=== PATIENT | female | born 1965 | race Caucasian/White ===

== ENCOUNTER 2017-02-03 17:14 | Emergency (ER) | payer OTHER ==
[2017-02-03 17:28] VITALS: RESP 16; TEMP 99
[2017-02-03] MEDS ORDERED: SODIUM CHLORIDE 0.9% 1,000 ML IV STA (18:01)
[2017-02-03] MEDS ORDERED: ONDANSETRON 4 MG/2 ML VIAL IVP STA (18:01)
--- NOTE | 2017-02-03 18:11 | ED ---
General Adult HPI - General Chief complaint: Urogenital Stated complaint: Poss UTI, nauseated Time Seen by Provider: 02/03/17 17:50 Source: patient, RN notes reviewed Mode of arrival: wheelchair Limitations: no limitations - History of Present Illness Initial comments: 51-year-old female presents emergency Department with multiple complaints including abdominal pain, nausea vomiting diarrhea. Patient states that she has not felt well over the last 6 weeks she initially started with some hematuria possible UTI was placed on mostly her back for several weeks prior primary care physician. She continued to not feel well and states that they didn't ultrasound of her pelvic region she had right-sided abdominal pain and found that she had a left-sided ovarian cyst. At this point she was referred to her DIRECTOR OF OCCUPATIONAL THERAPY in which DIRECTOR OF OCCUPATIONAL THERAPY told her that her pain is not related to the cyst is on same side. Patient states that she continues have multiple episodes of diarrhea and states that she feels very rundown and weak. Patient states that she's had some nausea which is ongoing and vomiting. Patient denies any fever currently but states that she did have a few days that she no she had a fever. Patient denies chest pain or shortness of breath. Patient denies any dysuria or hematuria at this time. Patient states that she has a history kidney stone and had one removed last year. She called her urologist to follow up but she was given the appointment 2 months from now. Patient denies any melena, hematochezia, hematemesis or coffee-ground emesis. - Related Data Home Medications Medication Instructions Recorded Confirmed DULoxetine HCL [Cymbalta] 90 mg PO HS 02/03/17 02/03/17 [place] Carbonate 900 mg PO HS 02/03/17 02/03/17 Pregabalin [Lyrica] 150 mg PO HS 02/03/17 02/03/17 clonazePAM [KlonoPIN] 0.5 mg PO TID PRN 02/03/17 02/03/17 Previous Rx's Medication Instructions Recorded Acetaminophen-Codeine 300-30mg 1 tab PO Q4H PRN #20 tablet 02/03/17 [Tylenol #3] Ondansetron Odt [Zofran Odt] 4 mg PO Q8HR PRN #10 tab 02/03/17 Allergies Allergy/AdvReac Type Severity Reaction Status Date / Time oxytetracycline Allergy Rash/Hives Verified 02/03/17 18:10 [From Terramycin] Review of Systems ROS Statement: Those systems with pertinent positive or pertinent negative responses have been documented in the HPI. ROS Other: All systems not noted in ROS Statement are negative. Past Medical History Past Medical History: No Reported History History of Any Multi-Drug Resistant Organisms: None Reported Past Surgical History: Orthopedic Surgery Additional Past Surgical History / Comment(s): bilateral knee surgery, cervical albation Past Psychological History: Anxiety, Depression Smoking Status: Current every day smoker Past Alcohol Use History: None Reported Past Drug Use History: None Reported General Exam Limitations: no limitations General appearance: alert, in no apparent distress Head exam: Present: atraumatic, normocephalic, normal inspection Respiratory exam: Present: normal lung sounds bilaterally. Absent: respiratory distress, wheezes, rales, rhonchi, stridor Cardiovascular Exam: Present: regular rate, normal rhythm, normal heart sounds. Absent: systolic murmur, diastolic murmur, rubs, gallop, clicks GI/Abdominal exam: Present: soft, tenderness (Mild right-sided abdominal tenderness, epigastric tenderness moderate), normal bowel sounds. Absent: distended, guarding, rebound, rigid Back exam: Present: CVA tenderness (R). Absent: CVA tenderness (L) Neurological exam: Present: alert, oriented X3, CN II-XII intact Skin exam: Present: warm, dry, intact, normal color. Absent: rash Course Vital Signs 02/03/17 02/03/17 17:21 19:22 Temperature 99.0 F Pulse Rate 84 77 Respiratory 16 16 Rate Blood Pressure 133/81 129/67 O2 Sat by Pulse 99 96 Oximetry Medical Decision Making - Medical Decision Making 51-year-old female presented for diarrhea abdominal pain nausea vomiting. Patient's lab work essentially unremarkable. There is no evidence of urinary tract infection. Patient unable to provide a stool sample here. She'll be sent home with a prescription for stool studies. Patient may have some sort of colitis, C. diff infection. Patient does feel improved after IV fluids and antinausea medication pain medication. Patient will follow on-call Dr. Sanchez she'll be discharged with pain medication Zofran. Return parameters were discussed. - Lab Data Result diagrams: 02/03/17 18:15 02/03/17 18:15 Lab Results 02/03/17 02/03/17 02/03/17 Range/Units 18:15 18:15 18:20 WBC 11.0 H (3.8-10.6) k/uL RBC 4.87 (3.80-5.40) m/uL Hgb 15.2 (11.4-16.0) gm/dL Hct 46.9 H (34.0-46.0) % MCV 96.3 (80.0-100.0) fL MCH 31.2 (25.0-35.0) pg MCHC 32.4 (31.0-37.0) g/dL RDW 13.3 (11.5-15.5) % Plt Count 309 (150-450) k/uL Neutrophils % 67 % Lymphocytes % 26 % Monocytes % 4 % Eosinophils % 1 % Basophils % 1 % Neutrophils # 7.3 (1.3-7.7) k/uL Lymphocytes # 2.8 (1.0-4.8) k/uL Monocytes # 0.4 (0-1.0) k/uL Eosinophils # 0.1 (0-0.7) k/uL Basophils # 0.1 (0-0.2) k/uL Sodium 141 (137-145) mmol/L Potassium 3.7 (3.5-5.1) mmol/L Chloride 109 H (98-107) mmol/L Carbon Dioxide 23 (22-30) mmol/L Anion Gap 9 mmol/L BUN 13 (7-17) mg/dL Creatinine 0.70 (0.52-1.04) mg/dL Est GFR (MDRD) Af Amer >60 (>60 ml/min/1.73 sqM) Est GFR (MDRD) Non-Af >60 (>60 ml/min/1.73 sqM) Glucose 91 (74-99) mg/dL Calcium 9.7 (8.4-10.2) mg/dL Total Bilirubin 0.7 (0.2-1.3) mg/dL AST 20 (14-36) U/L ALT 30 (9-52) U/L Alkaline Phosphatase 92 (38-126) U/L Total Protein 7.3 (6.3-8.2) g/dL Albumin 4.6 (3.5-5.0) g/dL Amylase 60 (30-110) U/L Lipase 61 (23-300) U/L Urine Color Yellow Urine Appearance Cloudy H (Clear) Urine pH 5.5 (5.0-8.0) Ur Specific [place] 1.018 (1.001-1.035) Urine Protein Negative (Negative) Urine Glucose (UA) Negative (Negative) Urine Ketones Negative (Negative) Urine Blood Negative (Negative) Urine Nitrite Negative (Negative) Urine Bilirubin Negative (Negative) Urine Urobilinogen <2.0 (<2.0) mg/dL Ur Leukocyte Esterase Negative (Negative) Urine RBC 2 (0-5) /hpf Urine WBC 5 (0-5) /hpf Ur Squamous Epith Cells 19 H (0-4) /hpf Amorphous Sediment Rare H (None) /hpf Urine Bacteria Rare H (None) /hpf Urine Mucus Rare H (None) /hpf Disposition Clinical Impression: Diarrhea, Abdominal pain Disposition: HOME SELF-CARE Condition: Stable Instructions: Abdominal Pain (ED) Additional Instructions: Please return to the Emergency Department if symptoms worsen or any other concerns. Prescriptions: Acetaminophen-Codeine 300-30mg [Tylenol #3] 1 tab PO Q4H PRN #20 tablet PRN Reason: pain Ondansetron Odt [Zofran Odt] 4 mg PO Q8HR PRN #10 tab PRN Reason: Nausea Referrals: Moses Dai MD [Primary Care Provider] - 1-2 days Time of Disposition: 20:10
[2017-02-03 18:31] LABS: Basophils # (A) 0.1 k/uL (0-0.2); Basophils % (A) 1 %; CH 31.4; CHCM 32.8; Eosinophils # (A) 0.1 k/uL (0-0.7); Eosinophils % (A) 1 %; HCT 46.9 % (34.0-46.0); HDW 2.14; HGB 15.2 gm/dL (11.4-16.0); Luc # (Auto) 0.21; Luc % (Auto) 2; Lymphocytes # (A) 2.8 k/uL (1.0-4.8); Lymphocytes % (A) 26 %; MCH 31.2 pg (25.0-35.0); MCHC 32.4 g/dL (31.0-37.0); MCV 96.3 fL (80.0-100.0); Mean Platelet Volume 6.1; Monocytes # (A) 0.4 k/uL (0-1.0); Monocytes % (A) 4 %; Neutrophils # (A) 7.3 k/uL (1.3-7.7); Neutrophils % (A) 67 %; RBC 4.87 m/uL (3.80-5.40); RDW 13.3 % (11.5-15.5); WBC (Perox) 10.67
[2017-02-03 18:44] LABS: Amorphous Sediment,Urine Rare /hpf; Appearance,Urine Cloudy (Clear); Bacteria,Urine Rare /hpf; Bilirubin,Urine Negative (Negative); Glucose,Urine (UA) Negative (Negative); Ketones,Urine Negative (Negative); Leukocyte Esterase,Urine Negative (Negative); Mucus,Urine Rare /hpf; Nitrite,Urine Negative (Negative); PH, Urine 5.5 (5.0-8.0); Particle Count 4861; Protein,Urine Negative (Negative); RBC,Urine 2 /hpf (0-5); Specific Gravity,Urine 1.018 (1.001-1.035); Squamous Epithelial Cell,Urine 19 /hpf (0-4); UA Billing (MACRO vs. MICRO) MICRO; Urobilinogen,Urine <2.0 mg/dL (<2.0); WBC,Urine 5 /hpf (0-5)
[2017-02-03 18:52] LABS: ALT 30 U/L (9-52); AST 20 U/L (14-36); Alkaline Phosphatase 92 U/L (38-126); Amylase 60 U/L (30-110); Anion Gap 9 mmol/L; Blood Urea Nitrogen 13 mg/dL (7-17); Calcium 9.7 mg/dL (8.4-10.2); Carbon Dioxide 23 mmol/L (22-30); Chloride 109 mmol/L (98-107); Glucose 91 mg/dL (74-99); Non-African American GFR(MDRD) >60 (>60 ml/min/1.73 sqM); Potassium 3.7 mmol/L (3.5-5.1); Sodium 141 mmol/L (137-145); Total Bilirubin 0.7 mg/dL (0.2-1.3); Total Protein 7.3 g/dL (6.3-8.2)
[2017-02-03] MEDS ORDERED: RX INFO: IV CONTRAST WAS GIVEN 1 EACH MISC MISCELLANE PRN (18:55)
[2017-02-03] MEDS ORDERED: MORPHINE SULFATE 4 MG/ML SYRINGE IVP STA (18:57)
[2017-02-03] MEDS ORDERED: SODIUM CHLORIDE 0.9% 1,000 ML IV ONE (18:58)
--- NOTE | 2017-02-03 19:05 | XR ---
EXAMINATION TYPE: XR KUB DATE OF EXAM: 02/03/2017 6:42 PM COMPARISON: NONE HISTORY: Abdominal pain TECHNIQUE: 2 views FINDINGS: There is no sign of intestinal obstruction or pneumoperitoneum. Fecal pattern is normal. Th ere are no pathologic calcifications over the kidneys. IMPRESSION: Nonacute abdomen.
--- NOTE | 2017-02-03 19:54 | CT ---
EXAMINATION TYPE: CT abdomen pelvis w con DATE OF EXAM: 02/03/2017 7:47 PM COMPARISON: NONE HISTORY: Right flank pain with microscopic hematuria x [address] DLP: 1590.00 mGycm Automated exposure control for dose reduction was used. TECHNIQUE: Helical acquisition of images was performed from the lung bases through the pelvis. CONTRAST: Performed without Oral Contrast and with IV Contrast, patient injected with 100 mL of Omnipaque 300. FINDINGS: There is mild subsegmental atelectasis at the posterior lung bases. There is no pleural effusion. The liver spleen pancreas gallbladder appear normal. Bile ducts are not dilated. There is no adrenal mass. Kidneys show satisfactory contrast opacification. There is no hydronephrosis. Ureters are not d ilated. There is no retroperitoneal adenopathy. There is a small umbilical hernia that contains fat. Appendix appears normal. I see no intestinal wall thickening. There are no dilated loops. Bladder dis tends smoothly. There is no sign of a pelvic mass. There are multiple sigmoid diverticula. There is n o evidence of diverticulitis. Uterus is retroverted. There is no ascites. I see no bony destructive p rocess. IMPRESSION: SMALL UMBILICAL HERNIA. NORMAL APPENDIX. NO SIGN OF ACUTE ABDOMEN AND PELVIS. MILD SIGMOID DIVERTICUL OSIS.
[2017-02-03 20:27] VITALS: BP 132/75; PULSE 70
== END 2017-02-03 20:27 | disposition home or self-care (01) ==
LOC: EC 17:14
DX: R10.13 Epigastric pain (principal); R11.2 Nausea with vomiting, unspecified; R19.7 Diarrhea, unspecified; F32.9 Major depressive disorder, single episode, unspecified; F41.9 Anxiety disorder, unspecified; F17.200 Nicotine dependence, unspecified, uncomplicated; Z79.899 Other long term (current) drug therapy; Z88.1 Allergy status to other antibiotic agents; Z87.442 Personal history of urinary calculi; Z87.42 Personal history of other diseases of the female genital tract
CPT/HCPCS: 36415; 80053; 82150; 83690; 85025; 81001; 74000; 74177; 99284; 96374; 96375; 96361 ×2; J2270; J2405; Q9967

== ENCOUNTER 2020-04-25 14:09 | Emergency (ER) | payer OTHER ==
[2020-04-25] MEDS ORDERED: KETOROLAC 15 MG/ML 1 ML VIAL IVP STA (14:58)
[2020-04-25] MEDS ORDERED: MORPHINE SULFATE 4 MG/ML SYRINGE IV STA (14:58)
[2020-04-25] MEDS ORDERED: SODIUM CHLORIDE 0.9% 1,000 ML IV STA ×2 (14:58)
[2020-04-25] MEDS ORDERED: ONDANSETRON 4 MG/2 ML VIAL IVP STA (14:58)
[2020-04-25 15:22] LABS: Appearance,Urine Clear (Clear); Bilirubin,Urine Negative (Negative); Blood,Urine Negative (Negative); Color,Urine Light Yellow; Glucose,Urine (UA) Negative (Negative); Ketones,Urine Negative (Negative); Leukocyte Esterase,Urine Negative (Negative); Nitrite,Urine Negative (Negative); Protein,Urine Negative (Negative); Specific Gravity,Urine 1.004 (1.001-1.035); Urobilinogen,Urine <2.0 mg/dL (<2.0)
[2020-04-25 15:23] LABS: Basophils # (A) 0.1 k/uL (0-0.2); Basophils % (A) 1 %; Eosinophils # (A) 0.1 k/uL (0-0.7); Eosinophils % (A) 2 %; HCT 42.1 % (34.0-46.0); HGB 13.3 gm/dL (11.4-16.0); Lymphocytes # (A) 3.3 k/uL (1.0-4.8); Lymphocytes % (A) 50 %; MCH 30.2 pg (25.0-35.0); MCHC 31.5 g/dL (31.0-37.0); Mean Platelet Volume 6.5; Monocytes # (A) 0.3 k/uL (0-1.0); Monocytes % (A) 4 %; Neutrophils # (A) 2.7 k/uL (1.3-7.7); Neutrophils % (A) 41 %; Platelet Count 286 k/uL (150-450); RBC 4.39 m/uL (3.80-5.40); RDW 13.3 % (11.5-15.5); WBC 6.6 k/uL (3.8-10.6)
[2020-04-25 15:32] LABS: ALT 17 U/L (4-34); AST 20 U/L (14-36); African American GFR (CKD) >90 (>60 ml/min/1.73 sqM); Albumin 4.2 g/dL (3.5-5.0); Alkaline Phosphatase 71 U/L (38-126); Amylase 46 U/L (30-110); Anion Gap 7 mmol/L; Blood Urea Nitrogen 8 mg/dL (7-17); Calcium 9.6 mg/dL (8.4-10.2); Carbon Dioxide 21 mmol/L (22-30); Chloride 111 mmol/L (98-107); Glucose 83 mg/dL (74-99); Non-African American GFR(CKD) >90 (>60 ml/min/1.73 sqM); Potassium 4.2 mmol/L (3.5-5.1); Sodium 139 mmol/L (137-145); Total Bilirubin 0.5 mg/dL (0.2-1.3); Total Protein 6.7 g/dL (6.3-8.2)
[2020-04-25 15:33] LABS: Partial Thromboplastin Time 24.1 sec (22.0-30.0); Prothrombin Time 10.2 sec (9.0-12.0)
--- NOTE | 2020-04-25 15:50 | ED ---
Abdominal Pain HPI - General Chief Complaint: Abdominal Pain Stated Complaint: nausea/vomiting Time Seen by Provider: 04/25/20 14:38 Source: patient, RN notes reviewed, old records reviewed Mode of arrival: wheelchair Limitations: no limitations - History of Present Illness Initial Comments: Ashley is a 34-year-old female presents with emergency department today with 5 days of right-sided abdominal pain. She reports it seems to worse after eating. She states that she has had significant nausea and has not ate in the past week. Patient reports some chillsassociated fevers but she has not had a thermometer at home to check. She states that she is not had much stool output. She denies any change in urination. - Related Data Home Medications Medication Instructions Recorded Confirmed DULoxetine HCL [Cymbalta] 30 mg PO HS 02/03/17 04/25/20 [place] Carbonate 900 mg PO HS 02/03/17 04/25/20 DULoxetine HCL [Cymbalta] 60 mg PO HS 04/25/20 04/25/20 Dicyclomine [Bentyl] 10 mg PO DAILY PRN 04/25/20 04/25/20 Multivitamins, Thera [Multivitamin 1 tab PO HS 04/25/20 04/25/20 (formulary)] Omeprazole 20 mg PO DAILY 04/25/20 04/25/20 QUEtiapine XR [SEROquel XR] 150 mg PO HS 04/25/20 04/25/20 clonazePAM [KlonoPIN] 0.5 mg PO QID PRN 04/25/20 04/25/20 Previous Rx's Medication Instructions Recorded Ciprofloxacin HCl [Cipro] 500 mg PO BID 7 Days #14 tab 04/25/20 Ondansetron Odt [Zofran Odt] 4 mg PO Q8HR PRN #12 tab 04/25/20 metroNIDAZOLE [Flagyl] 500 mg PO TID #21 tab 04/25/20 Allergies Allergy/AdvReac Type Severity Reaction Status Date / Time oxytetracycline Allergy Rash/Hives Verified 04/25/20 15:36 [From Terramycin] Review of Systems ROS Statement: Those systems with pertinent positive or pertinent negative responses have been documented in the HPI. ROS Other: All systems not noted in ROS Statement are negative. Past Medical History Past Medical History: No Reported History History of Any Multi-Drug Resistant Organisms: None Reported Past Surgical History: Orthopedic Surgery Additional Past Surgical History / Comment(s): bilateral knee surgery, cervical albation Past Psychological History: Anxiety, Depression Past Alcohol Use History: None Reported Past Drug Use History: None Reported General Exam - General Exam Comments Initial Comments: This is a 54-year-old male. Alert and oriented. Limitations: no limitations General appearance: alert, in no apparent distress Head exam: Present: atraumatic, normocephalic, normal inspection Eye exam: Present: normal appearance, PERRL, EOMI. Absent: scleral icterus, conjunctival injection, periorbital swelling ENT exam: Present: normal exam, mucous membranes moist Neck exam: Present: normal inspection. Absent: tenderness, meningismus, lymphadenopathy Respiratory exam: Present: normal lung sounds bilaterally. Absent: respiratory distress, wheezes, rales, rhonchi, stridor Cardiovascular Exam: Present: regular rate, normal rhythm, normal heart sounds. Absent: systolic murmur, diastolic murmur, rubs, gallop, clicks GI/Abdominal exam: Present: soft, tenderness (Is guarding tenderness on the rig ht upper and lower quadrant.), normal bowel sounds. Absent: distended, guarding, rebound, rigid Extremities exam: Present: normal inspection, full ROM, normal capillary refill. Absent: tenderness, pedal edema, joint swelling, calf tenderness Back exam: Present: normal inspection Neurological exam: Present: alert, oriented X3, CN II-XII intact Psychiatric exam: Present: normal affect, normal mood Course Vital Signs 04/25/20 04/25/20 04/25/20 14:18 15:33 18:30 Temperature 98.4 F 98.5 F Pulse Rate 84 77 71 Respiratory 16 17 18 Rate Blood Pressure 114/76 148/87 110/73 O2 Sat by Pulse 96 96 96 Oximetry Medical Decision Making - Medical Decision Making 54 year old female presents with right abdominal pain and nausea for one week. She reported peritoneal signs worse with going over bumps while driving to ED. She has tenderness in RLQ and Right mid quadraint and state pain radiates towards umbilicus. Discussed concern for appendicitis vs cholelithiasis,and patient has Hx of diverticulitis. Labs were reviewed and unremarkable. Due to persistent pain, pt underwent CT scan with contrast, showing diverticulosis and lumbar spine changes. No signs or cholecystitis. She has normal transaminase. With HX of diverticulosis and persistent tendereness discussed treatment for possible early diverticulitis and that pt needs to follow up with PCP as symptoms could also be related to biliary colic and possible hida scan in in the future. Discussed strict return parameters. - Lab Data Result diagrams: 04/25/20 15:08 04/25/20 15:08 Lab Results 04/25/20 04/25/20 04/25/20 Range/Units 15:08 15:08 15:08 WBC 6.6 (3.8-10.6) k/uL RBC 4.39 (3.80-5.40) m/uL Hgb 13.3 (11.4-16.0) gm/dL Hct 42.1 (34.0-46.0) % MCV 96.0 (80.0-100.0) fL MCH 30.2 (25.0-35.0) pg MCHC 31.5 (31.0-37.0) g/dL RDW 13.3 (11.5-15.5) % Plt Count 286 (150-450) k/uL Neutrophils % 41 % Lymphocytes % 50 % Monocytes % 4 % Eosinophils % 2 % Basophils % 1 % Neutrophils # 2.7 (1.3-7.7) k/uL Lymphocytes # 3.3 (1.0-4.8) k/uL Monocytes # 0.3 (0-1.0) k/uL Eosinophils # 0.1 (0-0.7) k/uL Basophils # 0.1 (0-0.2) k/uL PT 10.2 (9.0-12.0) sec INR 1.0 (<1.2) APTT 24.1 (22.0-30.0) sec Sodium (137-145) mmol/L Potassium (3.5-5.1) mmol/L Chloride (98-107) mmol/L Carbon Dioxide (22-30) mmol/L Anion Gap mmol/L BUN (7-17) mg/dL Creatinine (0.52-1.04) mg/dL Est GFR (CKD-EPI)AfAm (>60 ml/min/1.73 sqM) Est GFR (CKD-EPI)NonAf (>60 ml/min/1.73 sqM) Glucose (74-99) mg/dL Plasma Lactic Acid Tomas (0.7-2.0) mmol/L Calcium (8.4-10.2) mg/dL Total Bilirubin (0.2-1.3) mg/dL AST (14-36) U/L ALT (4-34) U/L Alkaline Phosphatase (38-126) U/L Total Protein (6.3-8.2) g/dL Albumin (3.5-5.0) g/dL Amylase (30-110) U/L Lipase (23-300) U/L Urine Color Light Yellow Urine Appearance Clear (Clear) Urine pH 7.0 (5.0-8.0) Ur Specific [place] 1.004 (1.001-1.035) Urine Protein Negative (Negative) Urine Glucose (UA) Negative (Negative) Urine Ketones Negative (Negative) Urine Blood Negative (Negative) Urine Nitrite Negative (Negative) Urine Bilirubin Negative (Negative) Urine Urobilinogen <2.0 (<2.0) mg/dL Ur Leukocyte Esterase Negative (Negative) 04/25/20 04/25/20 Range/Units 15:08 15:08 WBC (3.8-10.6) k/uL RBC (3.80-5.40) m/uL Hgb (11.4-16.0) gm/dL Hct (34.0-46.0) % MCV (80.0-100.0) fL MCH (25.0-35.0) pg MCHC (31.0-37.0) g/dL RDW (11.5-15.5) % Plt Count (150-450) k/uL Neutrophils % % Lymphocytes % % Monocytes % % Eosinophils % % Basophils % % Neutrophils # (1.3-7.7) k/uL Lymphocytes # (1.0-4.8) k/uL Monocytes # (0-1.0) k/uL Eosinophils # (0-0.7) k/uL Basophils # (0-0.2) k/uL PT (9.0-12.0) sec INR (<1.2) APTT (22.0-30.0) sec Sodium 139 (137-145) mmol/L Potassium 4.2 (3.5-5.1) mmol/L Chloride 111 H (98-107) mmol/L Carbon Dioxide 21 L (22-30) mmol/L Anion Gap 7 mmol/L BUN 8 (7-17) mg/dL Creatinine 0.71 (0.52-1.04) mg/dL Est GFR (CKD-EPI)AfAm >90 (>60 ml/min/1.73 sqM) Est GFR (CKD-EPI)NonAf >90 (>60 ml/min/1.73 sqM) Glucose 83 (74-99) mg/dL Plasma Lactic Acid Tomas 1.0 (0.7-2.0) mmol/L Calcium 9.6 (8.4-10.2) mg/dL Total Bilirubin 0.5 (0.2-1.3) mg/dL AST 20 (14-36) U/L ALT 17 (4-34) U/L Alkaline Phosphatase 71 (38-126) U/L Total Protein 6.7 (6.3-8.2) g/dL Albumin 4.2 (3.5-5.0) g/dL Amylase 46 (30-110) U/L Lipase 35 (23-300) U/L Urine Color Urine Appearance (Clear) Urine pH (5.0-8.0) Ur Specific [place] (1.001-1.035) Urine Protein (Negative) Urine Glucose (UA) (Negative) Urine Ketones (Negative) Urine Blood (Negative) Urine Nitrite (Negative) Urine Bilirubin (Negative) Urine Urobilinogen (<2.0) mg/dL Ur Leukocyte Esterase (Negative) - Radiology Data Radiology results: report reviewed CT shows diverticulosis. Findings and lumbar spine with loss of disc height and vacuum phenomenon present on L5. There is right-sided foraminal encroachment at L5-S1 due to lateral extension of endplate disc complex. Disposition Clinical Impression: Diverticulitis, Nausea Disposition: HOME SELF-CARE Condition: Good Instructions (If sedation given, give patient instructions): Diverticulitis (ED), Acute Nausea and Vomiting (ED) Additional Instructions: Recommended close follow-up with primary care physician if symptoms continue to persist to have a HIDA scan. Have a bland diet. Take medication as prescribed. Return to ED if any alarming signs or symptoms occur. Prescriptions: Ciprofloxacin HCl [Cipro] 500 mg PO BID 7 Days #14 tab metroNIDAZOLE [Flagyl] 500 mg PO TID #21 tab Ondansetron Odt [Zofran Odt] 4 mg PO Q8HR PRN #12 tab PRN Reason: Nausea Is patient prescribed a controlled substance at d/c from ED?: No Referrals: Adelina Queen DO [Primary Care Provider] - 1-2 days Time of Disposition: 17:31
--- NOTE | 2020-04-25 16:51 | CT ---
EXAMINATION TYPE: CT abdomen pelvis w con DATE OF EXAM: 04/25/2020 COMPARISON: Prior CT 02/03/2017 HISTORY: Right sided pain with nausea. CT DLP: 1406.9 mGycm Automated exposure control for dose reduction was used. TECHNIQUE: Helical acquisition of images from the lung bases through the pelvis have been completed. CONTRAST: Performed without Oral Contrast and with IV Contrast, patient injected with 100 mL of Isovue 300. FINDINGS: Umbilical hernia contains fat. LUNG BASES: There is some dependent atelectatic changes present. AORTA: No significant abnormality is appreciated. LIVER/GB: No significant abnormality is appreciated. PANCREAS: No significant abnormality is seen. SPLEEN: No significant abnormality is seen. ADRENALS: No significant abnormality is seen. KIDNEYS: No significant abnormality is seen. REPRODUCTIVE ORGANS: No significant abnormality is seen BOWEL: Diverticular changes are present in the sigmoid colon. The appendix is normal. Colonic interp osition anterior to the lower margin of the liver is noted. Small duodenal diverticulum is noted at t he head of the pancreas. FREE AIR: No Free Air visible. ASCITES: None visible. PELVIC ADENOPATHY: None visualized. RETROPERITONEAL ADENOPATHY: No Retroperitoneal Adenopathy visible. URINARY BLADDER: No significant abnormality is seen. OSSEOUS STRUCTURES: Unilateral spondylolysis at L5 on the left, there is some loss of disc height wi th vacuum phenomenon present, multilevel facet arthropathy change, there is a spinal curvature. Right -sided foraminal encroachment present at L5-S1 due to lateral extension of endplate disc complex. IMPRESSION: DIVERTICULOSIS. FINDINGS IN THE LUMBAR SPINE DESCRIBED.
[2020-04-25 18:32] VITALS: BP 110/73; PULSE 71; RESP 18; TEMP 98.5
== END 2020-04-25 18:57 | disposition home or self-care (01) ==
LOC: EC 14:09
DX: K57.32 Diverticulitis of large intestine without perforation or abscess without bleeding (principal); F41.9 Anxiety disorder, unspecified; F32.9 Major depressive disorder, single episode, unspecified; Z79.899 Other long term (current) drug therapy; Z88.1 Allergy status to other antibiotic agents
CPT/HCPCS: 36415; 80053; 82150; 83605; 83690; 85025; 85610; 85730; 81003; 74177; 99285; 96374; 96375 ×2; 96361 ×3; J2270; J2405; J1885; Q9967

== ENCOUNTER 2023-01-30 22:35 | Inpatient (IN) | payer MEDICAID, OTHER ==
--- NOTE | 2023-01-30 23:00 | ED ---
Overdose HPI - General Stated Complaint: Overdose Time Seen by Provider: 01/30/23 22:40 - History of Present Illness Initial Comments: 57-year-old female presents to the emergency department after intentional overdose. Patient reported suicidal ideations to her daughter and took excess of her Seroquel at 7:00. Patient is unsure how many tablets she took. Prescription was prescribed on the second of this month for 30 tablets. There are none left in the bottle. Patient possibly took anywhere from 13-30 tablets. There are 100 mg each. She also admits to drinking. Patient had a superficial laceration to the left wrist. Was combative on scene. They did radio into [facility] where they were given orders to give 5 mg of Versed and bypass their facility. Patient aggressive with staff. Admits that she took the medications in an attempt to harm herself. She denies any other ingestion. No other alleviating, precipitating or modifying factors - Related Data Home Medications Medication Instructions Recorded Confirmed [place] Carbonate 900 mg PO HS 02/03/17 01/31/23 DULoxetine HCL [Cymbalta] 60 mg PO BID 04/25/20 01/31/23 Omeprazole 20 mg PO DAILY 04/25/20 01/31/23 clonazePAM [KlonoPIN] 1 mg PO DAILY 04/25/20 01/31/23 traZODone HCL [Desyrel] 200 mg PO HS 01/31/23 01/31/23 Previous Rx's Medication Instructions Recorded Naltrexone HCl [Revia] 50 mg PO DAILY 30 Days #30 tab 02/04/23 Allergies Allergy/AdvReac Type Severity Reaction Status Date / Time oxytetracycline Allergy Rash/Hives Verified 01/31/23 12:18 [From Terramycin] Review of Systems ROS Statement: Those systems with pertinent positive or pertinent negative responses have been documented in the HPI. ROS Other: All systems not noted in ROS Statement are negative. Past Medical History Past Medical History: No Reported History History of Any Multi-Drug Resistant Organisms: None Reported Past Surgical History: Orthopedic Surgery Additional Past Surgical History / Comment(s): bilateral knee surgery, cervical albation Past Psychological History: Anxiety, Depression Past Alcohol Use History: None Reported Past Drug Use History: None Reported - Past Family History Mother Family Medical History: Asthma General Exam General appearance: alert, in no apparent distress Head exam: Present: atraumatic, normocephalic, normal inspection Eye exam: Present: normal appearance, PERRL, EOMI. Absent: scleral icterus, conjunctival injection, periorbital swelling ENT exam: Present: normal exam, mucous membranes moist Neck exam: Present: normal inspection. Absent: tenderness, meningismus, lymphadenopathy Respiratory exam: Present: normal lung sounds bilaterally. Absent: respiratory distress, wheezes, rales, rhonchi, stridor Cardiovascular Exam: Present: normal rhythm, tachycardia, normal heart sounds. Absent: systolic murmur, diastolic murmur, rubs, gallop, clicks GI/Abdominal exam: Present: soft, normal bowel sounds. Absent: distended, tenderness, guarding, rebound, rigid Extremities exam: Present: normal inspection, full ROM, normal capillary refill. Absent: tenderness, pedal edema, joint swelling, calf tenderness Back exam: Present: normal inspection Neurological exam: Present: alert, oriented X3, CN II-XII intact Psychiatric exam: Present: depressed, agitated, homicidal ideation, suicidal ideation Skin exam: Present: warm, dry, intact, normal color. Absent: rash Course Vital Signs 01/30/23 01/30/23 01/30/23 22:35 23:00 23:30 Temperature 98.0 F Pulse Rate 104 H 101 H 102 H Respiratory 16 11 L 19 Rate Blood Pressure 102/80 112/87 112/82 O2 Sat by Pulse 99 98 100 Oximetry 01/31/23 01/31/23 01/31/23 00:00 00:30 01:00 Temperature Pulse Rate 91 94 91 Respiratory 11 L 11 L 11 L Rate Blood Pressure 91/71 112/82 110/76 O2 Sat by Pulse 100 100 98 Oximetry 01/31/23 01/31/23 01/31/23 01:30 02:00 02:30 Temperature Pulse Rate 96 98 99 Respiratory 10 L 17 9 L Rate Blood Pressure 117/88 100/88 114/82 O2 Sat by Pulse 99 98 98 Oximetry 01/31/23 01/31/23 01/31/23 03:00 03:30 04:00 Temperature Pulse Rate 105 H 94 96 Respiratory 12 12 11 L Rate Blood Pressure 129/86 121/82 121/82 O2 Sat by Pulse 94 L 94 L 93 L Oximetry 01/31/23 01/31/23 01/31/23 04:30 05:00 05:30 Temperature Pulse Rate 103 H 90 94 Respiratory 16 16 10 L Rate Blood Pressure 115/81 126/96 O2 Sat by Pulse 96 94 L 93 L Oximetry 01/31/23 01/31/23 06:00 14:36 Temperature Pulse Rate 106 H 88 Respiratory 20 18 Rate Blood Pressure 126/96 O2 Sat by Pulse 93 L 98 Oximetry Procedures - Restraint - Face to Face Restraint Occurrence 1 Patient's Immediate Situation: Endangers others' safety Patient's Reaction to the Intervention: Aggressive, Combative Patient's Medical & Behavioral Condition: Awake, Alert, Agitated, Suicidal thoughts Need to Continue or Terminate Restraint or Seclusion: Continue Face to Face Eval of Restraint Date: 01/30/23 Face to Face Eval of Restraint Time: 23:10 Medical Decision Making - Medical Decision Making Was pt. sent in by a medical professional or institution (, PA, [employer], urgent care, hospital, or penitentiary...) When possible be specific @ -no Did you speak to anyone other than the patient for history (EMS, parent, family, police, friend...)? What history was obtained from this source @ -EMS Did you review nursing and triage notes (agree or disagree)? Why? @ -I reviewed and agree with nursing and triage notes Were old charts reviewed (outside hosp., previous admission, EMS record, old EKG, old radiological studies, urgent care reports/EKG's, penitentiary records)? Report findings @ -no old charts were reviewed Differential Diagnosis (chest pain, altered mental status, abdominal pain women, abdominal pain men, vaginal bleeding, weakness, fever, dyspnea, syncope, headache, dizziness, GI bleed, back pain, seizure, CVA, palpatations, mental health, musculoskeletal)? @ -intentional overdose, suicidal ideations, depression. bipolar, ptsd EKG interpreted by me (3pts min.). @ -yes - sinus tachycardia X-rays interpreted by me (1pt min.). @ -no CT interpreted by me (1pt min.). @ -no U/S interpreted by me (1pt. min.). @ -None done What testing was considered but not performed or refused? (CT, X-rays, U/S, labs)? Why? @ -None What meds were considered but not given or refused? Why? @ -None Did you discuss the management of the patient with other professionals (professionals i.e. , PA, [employer], lab, RT, psych nurse, director of social services, metal and plastic heater, teacher, chief media officer, rn case manager)? Give summary @ -EPS nurse Was smoking cessation discussed for >3mins.? @ -No Was critical care preformed (if so, how long)? @ -No Were there social determinants of health that impacted care today? How? (Homelessness, low income, unemployed, alcoholism, drug addiction, transportation, low edu. Level, literacy, decrease access to med. care, half-way, rehab)? @ -No Was there de-escalation of care discussed even if they declined (Discuss DNR or withdrawal of care, Hospice)? DNR status @ -No What co-morbidities impacted this encounter? (DM, HTN, Smoking, COPD, CAD, Cancer, CVA, ARF, Chemo, Hep., AIDS, mental health diagnosis, sleep apnea, morbid obesity)? @ -None Was patient admitted / discharged? Hospital course, mention meds given and route, prescriptions, significant lab abnormalities, going to OR and other per tinent info. @ -Upon arrival patient was placed in trauma 2. Thorough history and physical exam was performed. Patient extremely aggressive with staff and requires 4 point hard restraints and a spit mask. IV is established and laboratory studies are conducted. Serum alcohol is 69. We did call and speak with poison control. They did recommend that the patient should be observed for 8 hours from ingestion. Patient will be medically clear at 3 AM and will require EPS eval uation at that time Undiagnosed new problem with uncertain prognosis? @ -yes Drug Therapy requiring intensive monitoring for toxicity (Heparin, Nitro, Insulin, Cardizem)? @ -No Were any procedures done? @ -no Diagnosis/symptom? @ -acute intentional overdose, depression, suicide attempt, alcohol use Acute, or Chronic, or Acute on Chronic? @ -acute Uncomplicated (without systemic symptoms) or Complicated (systemic symptoms)? @ -complicated Side effects of treatment? @ -No Exacerbation, Progression, or Severe Exacerbation? @ -No Poses a threat to life or bodily function? How? (Chest pain, [place], [place], pneumonia, PE, COPD, DKA, ARF, appy, cholecystitis, CVA, Diverticulitis, Homicidal, Suicidal, threat to staff... and all critical care pts) @ -yes - patient attempted to kill herself - Lab Data Result diagrams: 01/30/23 22:55 01/30/23 22:55 Lab Results 01/30/23 01/30/23 01/30/23 Range/Units 22:55 22:55 22:55 WBC 7.0 (3.8-10.6) k/uL RBC 4.26 (3.80-5.40) m/uL Hgb 13.5 (11.4-16.0) gm/dL Hct 41.0 (34.0-46.0) % MCV 96.1 (80.0-100.0) fL MCH 31.7 (25.0-35.0) pg MCHC 33.0 (31.0-37.0) g/dL RDW 12.6 (11.5-15.5) % Plt Count 298 (150-450) k/uL MPV 6.5 Neutrophils % 44 % Lymphocytes % 46 % Monocytes % 3 % Eosinophils % 3 % Basophils % 1 % Neutrophils # 3.1 (1.3-7.7) k/uL Lymphocytes # 3.2 (1.0-4.8) k/uL Monocytes # 0.2 (0-1.0) k/uL Eosinophils # 0.2 (0-0.7) k/uL Basophils # 0.1 (0-0.2) k/uL PT 10.5 (9.0-12.0) sec INR 1.0 (<1.2) Sodium 142 (137-145) mmol/L Potassium 4.1 (3.5-5.1) mmol/L Chloride 106 (98-107) mmol/L Carbon Dioxide 24 (22-30) mmol/L Anion Gap 12 mmol/L BUN 8 (7-17) mg/dL Creatinine 0.96 (0.52-1.04) mg/dL Est GFR (CKD-EPI)AfAm 75 (>60 ml/min/1.73 sqM) Est GFR (CKD-EPI)NonAf 65 (>60 ml/min/1.73 sqM) Glucose 88 (74-99) mg/dL Estimated Ave Glu mg/dL Hemoglobin A1c (0.0-6.0) % Calcium 9.4 (8.4-10.2) mg/dL Total Bilirubin 0.3 (0.2-1.3) mg/dL AST 20 (14-36) U/L ALT 20 (4-34) U/L Alkaline Phosphatase 53 (38-126) U/L Troponin I (0.000-0.034) ng/mL Total Protein 6.6 (6.3-8.2) g/dL Albumin 4.2 (3.5-5.0) g/dL Triglycerides (0.00-149.00) mg/dL Cholesterol (0.00-200.00) mg/dL LDL Cholesterol, Calc (0.0-131.0) mg/dL VLDL Cholesterol, Calc (5.00-40.00) mg/dL HDL Cholesterol (40.00-60.00) mg/dL Cholesterol/HDL Ratio Ratio TSH (0.465-4.680) mIU/L Urine HCG, Qual (Not Detectd) Salicylates <1.0 mg/dL Urine Opiates Screen (NotDetected) Ur Oxycodone Screen (NotDetected) Urine Methadone Screen (NotDetected) Ur Propoxyphene Screen (NotDetected) Acetaminophen <10.0 ug/mL Ur Barbiturates Screen (NotDetected) U Tricyclic Antidepress (NotDetected) Ur Phencyclidine Scrn (NotDetected) Ur Amphetamines Screen (NotDetected) U Methamphetamines Scrn (NotDetected) U Benzodiazepines Scrn (NotDetected) [place] mmol/L Urine Cocaine Screen (NotDetected) U Marijuana (THC) Screen (NotDetected) Serum Alcohol 69 mg/dL Coronavirus (PCR) (Not Detectd) 01/30/23 01/30/23 01/30/23 Range/Units 22:55 22:55 22:55 WBC (3.8-10.6) k/uL RBC (3.80-5.40) m/uL Hgb (11.4-16.0) gm/dL Hct (34.0-46.0) % MCV (80.0-100.0) fL MCH (25.0-35.0) pg MCHC (31.0-37.0) g/dL RDW (11.5-15.5) % Plt Count (150-450) k/uL MPV Neutrophils % % Lymphocytes % % Monocytes % % Eosinophils % % Basophils % % Neutrophils # (1.3-7.7) k/uL Lymphocytes # (1.0-4.8) k/uL Monocytes # (0-1.0) k/uL Eosinophils # (0-0.7) k/uL Basophils # (0-0.2) k/uL PT (9.0-12.0) sec INR (<1.2) Sodium (137-145) mmol/L Potassium (3.5-5.1) mmol/L Chloride (98-107) mmol/L Carbon Dioxide (22-30) mmol/L Anion Gap mmol/L BUN (7-17) mg/dL Creatinine (0.52-1.04) mg/dL Est GFR (CKD-EPI)AfAm (>60 ml/min/1.73 sqM) Est GFR (CKD-EPI)NonAf (>60 ml/min/1.73 sqM) Glucose (74-99) mg/dL Estimated Ave Glu mg/dL 101 Hemoglobin A1c 5.1 (0.0-6.0) % Calcium (8.4-10.2) mg/dL Total Bilirubin (0.2-1.3) mg/dL AST (14-36) U/L ALT (4-34) U/L Alkaline Phosphatase (38-126) U/L Troponin I <0.012 (0.000-0.034) ng/mL Total Protein (6.3-8.2) g/dL Albumin (3.5-5.0) g/dL Triglycerides 312.00 H (0.00-149.00) mg/dL Cholesterol 198.00 (0.00-200.00) mg/dL LDL Cholesterol, Calc 90.7 (0.0-131.0) mg/dL VLDL Cholesterol, Calc 62.40 H (5.00-40.00) mg/dL HDL Cholesterol 44.90 (40.00-60.00) mg/dL Cholesterol/HDL Ratio 4.41 Ratio TSH 8.840 H (0.465-4.680) mIU/L Urine HCG, Qual (Not Detectd) Salicylates mg/dL Urine Opiates Screen (NotDetected) Ur Oxycodone Screen (NotDetected) Urine Methadone Screen (NotDetected) Ur Propoxyphene Screen (NotDetected) Acetaminophen ug/mL Ur Barbiturates Screen (NotDetected) U Tricyclic Antidepress (NotDetected) Ur Phencyclidine Scrn (NotDetected) Ur Amphetamines Screen (NotDetected) U Methamphetamines Scrn (NotDetected) U Benzodiazepines Scrn (NotDetected) [place] mmol/L Urine Cocaine Screen (NotDetected) U Marijuana (THC) Screen (NotDetected) Serum Alcohol mg/dL Coronavirus (PCR) (Not Detectd) 01/31/23 01/31/23 01/31/23 Range/Units 04:00 04:00 06:00 WBC (3.8-10.6) k/uL RBC (3.80-5.40) m/uL Hgb (11.4-16.0) gm/dL Hct (34.0-46.0) % MCV (80.0-100.0) fL MCH (25.0-35.0) pg MCHC (31.0-37.0) g/dL RDW (11.5-15.5) % Plt Count (150-450) k/uL MPV Neutrophils % % Lymphocytes % % Monocytes % % Eosinophils % % Basophils % % Neutrophils # (1.3-7.7) k/uL Lymphocytes # (1.0-4.8) k/uL Monocytes # (0-1.0) k/uL Eosinophils # (0-0.7) k/uL Basophils # (0-0.2) k/uL PT (9.0-12.0) sec INR (<1.2) Sodium (137-145) mmol/L Potassium (3.5-5.1) mmol/L Chloride (98-107) mmol/L Carbon Dioxide (22-30) mmol/L Anion Gap mmol/L BUN (7-17) mg/dL Creatinine (0.52-1.04) mg/dL Est GFR (CKD-EPI)AfAm (>60 ml/min/1.73 sqM) Est GFR (CKD-EPI)NonAf (>60 ml/min/1.73 sqM) Glucose (74-99) mg/dL Estimated Ave Glu mg/dL Hemoglobin A1c (0.0-6.0) % Calcium (8.4-10.2) mg/dL Total Bilirubin (0.2-1.3) mg/dL AST (14-36) U/L ALT (4-34) U/L Alkaline Phosphatase (38-126) U/L Troponin I (0.000-0.034) ng/mL Total Protein (6.3-8.2) g/dL Albumin (3.5-5.0) g/dL Triglycerides (0.00-149.00) mg/dL Cholesterol (0.00-200.00) mg/dL LDL Cholesterol, Calc (0.0-131.0) mg/dL VLDL Cholesterol, Calc (5.00-40.00) mg/dL HDL Cholesterol (40.00-60.00) mg/dL Cholesterol/HDL Ratio Ratio TSH (0.465-4.680) mIU/L Urine HCG, Qual Not Detected (Not Detectd) Salicylates mg/dL Urine Opiates Screen Not Detected (NotDetected) Ur Oxycodone Screen Not Detected (NotDetected) Urine Methadone Screen Not Detected (NotDetected) Ur Propoxyphene Screen Not Detected (NotDetected) Acetaminophen ug/mL Ur Barbiturates Screen Not Detected (NotDetected) U Tricyclic Antidepress Detected H (NotDetected) Ur Phencyclidine Scrn Not Detected (NotDetected) Ur Amphetamines Screen Not Detected (NotDetected) U Methamphetamines Scrn Not Detected (NotDetected) U Benzodiazepines Scrn Not Detected (NotDetected) [place] 0.6 mmol/L Urine Cocaine Screen Not Detected (NotDetected) U Marijuana (THC) Screen Detected H (NotDetected) Serum Alcohol mg/dL Coronavirus (PCR) (Not Detectd) 01/31/23 Range/Units 06:00 WBC (3.8-10.6) k/uL RBC (3.80-5.40) m/uL Hgb (11.4-16.0) gm/dL Hct (34.0-46.0) % MCV (80.0-100.0) fL MCH (25.0-35.0) pg MCHC (31.0-37.0) g/dL RDW (11.5-15.5) % Plt Count (150-450) k/uL MPV Neutrophils % % Lymphocytes % % Monocytes % % Eosinophils % % Basophils % % Neutrophils # (1.3-7.7) k/uL Lymphocytes # (1.0-4.8) k/uL Monocytes # (0-1.0) k/uL Eosinophils # (0-0.7) k/uL Basophils # (0-0.2) k/uL PT (9.0-12.0) sec INR (<1.2) Sodium (137-145) mmol/L Potassium (3.5-5.1) mmol/L Chloride (98-107) mmol/L Carbon Dioxide (22-30) mmol/L Anion Gap mmol/L BUN (7-17) mg/dL Creatinine (0.52-1.04) mg/dL Est GFR (CKD-EPI)AfAm (>60 ml/min/1.73 sqM) Est GFR (CKD-EPI)NonAf (>60 ml/min/1.73 sqM) Glucose (74-99) mg/dL Estimated Ave Glu mg/dL Hemoglobin A1c (0.0-6.0) % Calcium (8.4-10.2) mg/dL Total Bilirubin (0.2-1.3) mg/dL AST (14-36) U/L ALT (4-34) U/L Alkaline Phosphatase (38-126) U/L Troponin I (0.000-0.034) ng/mL Total Protein (6.3-8.2) g/dL Albumin (3.5-5.0) g/dL Triglycerides (0.00-149.00) mg/dL Cholesterol (0.00-200.00) mg/dL LDL Cholesterol, Calc (0.0-131.0) mg/dL VLDL Cholesterol, Calc (5.00-40.00) mg/dL HDL Cholesterol (40.00-60.00) mg/dL Cholesterol/HDL Ratio Ratio TSH (0.465-4.680) mIU/L Urine HCG, Qual (Not Detectd) Salicylates mg/dL Urine Opiates Screen (NotDetected) Ur Oxycodone Screen (NotDetected) Urine Methadone Screen (NotDetected) Ur Propoxyphene Screen (NotDetected) Acetaminophen ug/mL Ur Barbiturates Screen (NotDetected) U Tricyclic Antidepress (NotDetected) Ur Phencyclidine Scrn (NotDetected) Ur Amphetamines Screen (NotDetected) U Methamphetamines Scrn (NotDetected) U Benzodiazepines Scrn (NotDetected) [place] mmol/L Urine Cocaine Screen (NotDetected) U Marijuana (THC) Screen (NotDetected) Serum Alcohol mg/dL Coronavirus (PCR) Not Detected (Not Detectd) - EKG Data EKG Comments: EKG. By myself and demonstrates demonstrates sinus tachycardia with a rate of 106. AK interval 179. QRS 101. QTC 428. There is no acute ST segment elevations or depressions Disposition Clinical Impression: Major depressive disorder, recurrent, severe without psychotic features, Intentional overdose, Alcohol use Disposition: ADMITTED IP TO THIS [facility] Condition: Stable Is patient prescribed a controlled substance at d/c from ED?: No
[2023-01-30] MEDS ORDERED: SODIUM CHLORIDE 0.9% 1,000 ML IV STA (23:01)
[2023-01-30 23:24] LABS: Basophils # (A) 0.1 k/uL (0-0.2); Basophils % (A) 1 %; Eosinophils # (A) 0.2 k/uL (0-0.7); Eosinophils % (A) 3 %; HGB 13.5 gm/dL (11.4-16.0); Lymphocytes # (A) 3.2 k/uL (1.0-4.8); Lymphocytes % (A) 46 %; MCH 31.7 pg (25.0-35.0); MCV 96.1 fL (80.0-100.0); Mean Platelet Volume 6.5; Monocytes # (A) 0.2 k/uL (0-1.0); Monocytes % (A) 3 %; Neutrophils # (A) 3.1 k/uL (1.3-7.7); Neutrophils % (A) 44 %; Platelet Count 298 k/uL (150-450); RBC 4.26 m/uL (3.80-5.40); RDW 12.6 % (11.5-15.5)
[2023-01-30 23:33] LABS: Prothrombin Time 10.5 sec (9.0-12.0)
[2023-01-30 23:40] LABS: ALT 20 U/L (4-34); AST 20 U/L (14-36); Acetaminophen <10.0 ug/mL; African American GFR (CKD) 75 (>60 ml/min/1.73 sqM); Albumin 4.2 g/dL (3.5-5.0); Alcohol 69 mg/dL; Alkaline Phosphatase 53 U/L (38-126); Anion Gap 12 mmol/L; Blood Urea Nitrogen 8 mg/dL (7-17); Calcium 9.4 mg/dL (8.4-10.2); Carbon Dioxide 24 mmol/L (22-30); Chloride 106 mmol/L (98-107); Glucose 88 mg/dL (74-99); Non-African American GFR(CKD) 65 (>60 ml/min/1.73 sqM); Potassium 4.1 mmol/L (3.5-5.1); Salicylate <1.0 mg/dL; Sodium 142 mmol/L (137-145); Total Bilirubin 0.3 mg/dL (0.2-1.3); Total Protein 6.6 g/dL (6.3-8.2)
[2023-01-31 04:51] LABS: Amphetamine Screen,Urine Not Detected (NotDetected); Barbiturate Screen,Urine Not Detected (NotDetected); Benzodiazepines Screen,Urine Not Detected (NotDetected); Cocaine Screen,Urine Not Detected (NotDetected); Methadone Screen, Urine Not Detected (NotDetected); Opiate Screen,Urine Not Detected (NotDetected); Oxycodone Screen, Urine Not Detected (NotDetected); Phencyclidine Screen,Urine Not Detected (NotDetected); Tricyclic Antidepressant,Urine Detected (NotDetected); Urn Cannabinoid Scrn Detected (NotDetected)
[2023-01-31] MEDS ORDERED: NICOTINE 21MG/24HR PATCH TRANSDERM STA (13:37)
[2023-01-31] MEDS ORDERED: MAG HYDROX/AL HYDROX/SIMETH 30 ML CUP PO PRN (14:18)
[2023-01-31] MEDS ORDERED: ACETAMINOPHEN TAB 325 MG TAB PO PRN (14:18)
[2023-01-31] MEDS ORDERED: MAGNESIUM HYDROXIDE 2,400 MG/10 ML CUP PO PRN (14:18)
[2023-01-31] MEDS ORDERED: LORazepam 2 MG/ML INJ IM PRN (14:23)
[2023-01-31] MEDS ORDERED: LORazepam 1 MG TAB PO PRN (14:23)
[2023-01-31] MEDS: DULoxetine HCL 60 MG CAPSULE.DR PO SCH (21:18)
[2023-01-31] MEDS: traZODone HCL 100 MG TAB PO SCH (21:18)
[2023-01-31] MEDS: LITHIUM CARBONATE 300 MG CAP PO SCH (21:18)
[2023-01-31] MEDS: clonazePAM 0.5 MG TAB PO SCH (21:18)
--- NOTE | 2023-02-01 00:34 | P.CONS ---
History of Present Illness - Reason for Consult Consult date: 02/01/23 - History of Present Illness Patient is a 57-year-old female with a PMH of IBS, bilateral knee replacement, and tobacco use who presented to the emergency room with complaints of depression and suicidal ideation. The patient attempted to commit suicide at home by taking as many as 30 tablets of Seroquel. She was admitted to the mental health unit where she was seen and evaluated. She reported feeling at her baseline at the time of interview. She denied any active physical complaints. She denied experiencing chest discomfort or shortness of breath, fever, chills, cough, nausea, vomiting, abdominal pain, diarrhea. Patient reports using vapes. Also uses recreational marijuana and CBD. Review of systems: Pertinent positives and negatives as discussed in HPI, a complete review of systems was performed and all other systems are negative. Physical examination: General: non toxic, no distress, appears at stated age, obese Derm: no unusual rashes/lesions, no unusual ecchymoses, warm, dry Head: atraumatic, normocephalic, symmetric Eyes: EOMI, no lid lag, anicteric sclera ENT: Nose and ears atraumatic, no thrush, no pharyngeal erythema Neck: trachea midline, supple Mouth: no lip lesion, mucus membranes moist Cardiovascular: S1S2 reg, no murmur, no edema Lungs: CTA bilateral, no rhonchi, no rales , no accessory muscle use Abdominal: soft, nontender to palpation, no guarding Ext: no gross muscle atrophy, no contractures, Neuro: No gross focal neuro deficits noted Psych: Alert, oriented, appropriate affect Assessment: Marijuana and tobacco abuse Depression and anxiety Imaging: EKG performed revealed sinus tachycardia at [address]/T-wave changes noted as reviewed by me. Data Review: Laboratory evaluation was reviewed with WBC count 7.0, hemoglobin 13.5, platelets 298, sodium 142, potassium 4.1, BUN 8, creatinine 0.96, urine toxicology positive for TCAs and marijuana. Plan: Strongly advised on importance of cessation from substance use Defer management of depression and suicidal ideation to primary psychiatry service Thank you for allowing us to participate in the care of this patient. We will follow peripherally. Do not hesitate to contact us with questions. Someone can be reached from the [facility] hospitalist group at all hours of the day at [phone]. Past Medical History Past Medical History: No Reported History History of Any Multi-Drug Resistant Organisms: None Reported Past Surgical History: Orthopedic Surgery Additional Past Surgical History / Comment(s): bilateral knee surgery, cervical albation Past Psychological History: Anxiety, Depression Past Alcohol Use History: None Reported Past Drug Use History: None Reported - Past Family History Mother Family Medical History: Asthma Medications and Allergies Home Medications Medication Instructions Recorded Confirmed Type [place] Carbonate 900 mg PO HS 02/03/17 01/31/23 History DULoxetine HCL [Cymbalta] 60 mg PO BID 04/25/20 01/31/23 History Omeprazole 20 mg PO DAILY 04/25/20 01/31/23 History clonazePAM [KlonoPIN] 1 mg PO DAILY 04/25/20 01/31/23 History Naltrexone HCl [Revia] 50 mg PO DAILY 01/31/23 01/31/23 History QUEtiapine [SEROquel] 100 mg PO HS 01/31/23 01/31/23 History traZODone HCL [Desyrel] 200 mg PO HS 01/31/23 01/31/23 History Allergies Allergy/AdvReac Type Severity Reaction Status Date / Time oxytetracycline Allergy Rash/Hives Verified 01/31/23 12:18 [From Terramycin] Physical Exam Vitals: Vital Signs Temp Pulse Pulse Resp BP BP Pulse Ox 01/31/23 15:20 97.1 F L 101 H 18 134/91 01/31/23 14:36 88 18 98 01/31/23 06:00 106 H 20 126/96 93 L 01/31/23 05:30 94 10 L 93 L 01/31/23 05:00 90 16 126/96 94 L 01/31/23 04:30 103 H 16 115/81 96 01/31/23 04:00 96 11 L 121/82 93 L 01/31/23 03:30 94 12 121/82 94 L 01/31/23 03:00 105 H 12 129/86 94 L 01/31/23 02:30 99 9 L 114/82 98 01/31/23 02:00 98 17 100/88 98 01/31/23 01:30 96 10 L 117/88 99 01/31/23 01:00 91 11 L 110/76 98 Results CBC & Chem 7: 01/30/23 22:55 01/30/23 22:55 Labs: Abnormal Lab Results - Last 24 Hours (Table) 01/31/23 Range/Units 04:00 U Tricyclic Antidepress Detected H (NotDetected) U Marijuana (THC) Screen Detected H (NotDetected)
[2023-02-01] MEDS: NICOTINE 14MG/24HR PATCH TRANSDERM SCH (09:06)
[2023-02-01] MEDS: clonazePAM 0.5 MG TAB PO SCH ×2 (09:06→21:43)
[2023-02-01] MEDS: PANTOPRAZOLE 40 MG TABLET PO SCH (09:06)
[2023-02-01] MEDS: NALTREXONE HCL 50 MG TAB PO SCH (09:06)
[2023-02-01] MEDS: DULoxetine HCL 60 MG CAPSULE.DR PO SCH ×2 (09:06→21:43)
[2023-02-01 11:14] LABS: Chol/HDL Ratio 4.41 Ratio; LDL Cholesterol,Calculated 90.7 mg/dL (0.0-131.0)
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
[2023-02-01] MEDS: traZODone HCL 100 MG TAB PO SCH (21:43)
[2023-02-01] MEDS: LITHIUM CARBONATE 300 MG CAP PO SCH (21:43)
[2023-02-02] MEDS: NICOTINE 14MG/24HR PATCH TRANSDERM SCH (06:27)
[2023-02-02] MEDS: NALTREXONE HCL 50 MG TAB PO SCH (09:31)
[2023-02-02] MEDS: DULoxetine HCL 60 MG CAPSULE.DR PO SCH ×2 (09:31→20:05)
[2023-02-02] MEDS: clonazePAM 0.5 MG TAB PO SCH ×2 (09:31→20:05)
[2023-02-02] MEDS: PANTOPRAZOLE 40 MG TABLET PO SCH (09:31)
--- NOTE | 2023-02-02 11:55 | P.PN ---
Progress Note - Text Progress Note Date: 02/02/23 Clinical Problems: Suicidal ideation, alcohol use disorder severe, alcohol withdrawal, major depressive disorder, borderline personality disorder Interim history: I reviewed the medical record, interviewed the patient and discussed the treatment and treatment plan with the treatment team. The patient was very traumatic during interview. She cried when describing multiple stresses particularly with the anniversary of her mother's . Other times she appeared elated. She attributed to the suicide attempt to the perceived neglect by her children. She perseverated that they told her she was dramatic She expressed regret over the suicide attempt and understands that her children would have been devastated if she had . However, she continues to express feelings of worthlessness and hopelessness. She expressed confidence that she would recovering her sobriety. She wants to continue participating in [facility] to diagnosis program. TSH was elevated 8.8 but free T4 was normal 1.2. Triglycerides were elevated 312. Marijuana was detected in the urine drug screen. Mental status exam: She presented as a disheveled appearing middle-aged woman who was walking with the aid of a walker. She made eye contact and appeared to attend to interview. Her gait was slow, shuffling but steady. Her speech was spontaneous and consistent with her affect. Her affect was labile as described above. She denied current suicidal ideation or wishes. However, she continues to express feelings of hopelessness, helplessness and worthlessness. Her no psychotic symptoms. Her thinking was concrete. Assessment: She continues to signs and symptoms of a depressive disorder. Lability may be related to a mixed affect affect picture or the effects of alcohol and alcohol withdrawal. She continues to meet criteria for inpatient psychiatric treatment for symptom stabilization and safety. Plan: Continue current medications including Klonopin 0.5 mg twice a day, Cymbalta 60 mg twice a day, lithium carbonate 900 mg at bedtime naltrexone 50 mg daily and trazodone 200 mg at bedtime. Ativan when necessary for agitation or acute anxiety. Habitrol for smoking cessation. Continue participation in therapeutic groups and activities. Evaluate clinical status response to treatment daily basis. Patient to follow up with [facility] after discharge.
[2023-02-02] MEDS: LITHIUM CARBONATE 300 MG CAP PO SCH (20:05)
[2023-02-02] MEDS: traZODone HCL 100 MG TAB PO SCH (20:05)
[2023-02-03] MEDS: NICOTINE 14MG/24HR PATCH TRANSDERM SCH (08:52)
[2023-02-03] MEDS: DULoxetine HCL 60 MG CAPSULE.DR PO SCH ×2 (08:52→20:32)
[2023-02-03] MEDS: NALTREXONE HCL 50 MG TAB PO SCH (08:52)
[2023-02-03] MEDS: clonazePAM 0.5 MG TAB PO SCH ×2 (08:52→20:32)
[2023-02-03] MEDS: PANTOPRAZOLE 40 MG TABLET PO SCH (08:52)
--- NOTE | 2023-02-03 11:27 | P.PN ---
Progress Note - Text Progress Note Date: 02/03/23 Interval History: Patient was seen wandering the hallways and was directable and agreeable to speak with senior medical writer in the office. Currently, the patient is not reporting any suicidal or homicidal ideation, intention, and/or plan. She vehemently expresses regret over her actions and reports that she is upset with herself for having attempted suicide. She feels like she let all her friends and support group down. She reports that she has strong impression beliefs against suicide. She reports no homicidal ideation, intention, and/or plan. She reports no auditory or visual hallucinations. She denies any paranoia or other delusions. The patient has been adherent with her medications and is not endorsing any significant side effects. She does report that she has not been getting along with a peer on the unit. However, the patient does understand containing health y boundaries and appropriate behaviors on the unit. She reports no medical issues or concerns. She remains future and goal oriented. Mental Status Exam: General Appearance: Patient appears to be stated age is alert, directable, and cooperative. Patient is wearing glasses. Hair appears to be somewhat unkempt. Behavior: Patient is calmly seated without any agitated behavior. Appropriately tearful during the interview. Speech: Patient's speech is fluent and nonpressured. Mood/Affect: Mood is improving mildly, affect is congruent and constricted. Suicidality/Homicidality: Patient vehemently denies any suicidal or homicidal ideation, intention, and/or plan. Perceptions: Patient denies any visual hallucinations and denies any auditory hallucinations Though content/process: There is no evidence of any delusional thought content and thought process is linear and goal-directed. Memory and concentration: AOX3, grossly intact for the purposes of this session Judgment and insight: Improving mildly Vital Signs Temp 97.2 F L 02/03/23 06:47 Pulse 110 H 02/03/23 06:47 Resp 14 02/03/23 06:47 BP 148/70 02/02/23 06:28 Pulse Ox 98 02/02/23 06:28 FiO2 Assessment Major depressive disorder, recurrent, severe, without psychotic features Alcohol use disorder, on maintenance treatment borderline personality disorder Nicotine dependence Plan: -Patient continues to meet criteria for inpatient psychiatric admission for symptom stabilization and safety. Patient has signed adult voluntary form and medication consent and was placed in patient's chart. -Medications: Continue Klonopin 0.5 mg by mouth twice a day for anxiety Cymbalta 60 mg by mouth twice a day for depression/anxiety [place] 900 mg by mouth at bedtime for impulsivity and suicidal thoughts [place] 50 mg by mouth daily for alcohol cessation Trazodone 200 mg by mouth at bedtime for insomnia -When necessary Ativan for agitation/aggression. -NRT - nicotine patch -SW on board for discharge planning. Encouraged the patient to participate in milieu.
[2023-02-03] MEDS: traZODone HCL 100 MG TAB PO SCH (20:32)
[2023-02-03] MEDS: LITHIUM CARBONATE 300 MG CAP PO SCH (20:33)
[2023-02-04] MEDS: NICOTINE 14MG/24HR PATCH TRANSDERM SCH (08:43)
[2023-02-04] MEDS: NALTREXONE HCL 50 MG TAB PO SCH (08:44)
[2023-02-04] MEDS: PANTOPRAZOLE 40 MG TABLET PO SCH (08:44)
[2023-02-04] MEDS: DULoxetine HCL 60 MG CAPSULE.DR PO SCH (08:44)
[2023-02-04] MEDS: clonazePAM 0.5 MG TAB PO SCH (08:44)
[2023-02-04 08:47] VITALS: BP 130/81; PULSE 115; RESP 20; TEMP 96.4
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
== END 2023-02-04 13:06 | disposition home or self-care (01) | DRG 751 ==
LOC: EC 22:35 → 3MHU 01-31 14:16
PROVIDERS: ADMIT Psychiatry & Neurology Psychiatry; ATTEND Psychiatry & Neurology Psychiatry
DX: F33.2 Major depressive disorder, recurrent severe without psychotic features (principal); F10.239 Alcohol dependence with withdrawal, unspecified; F17.200 Nicotine dependence, unspecified, uncomplicated; F41.9 Anxiety disorder, unspecified; F60.3 Borderline personality disorder; G47.00 Insomnia, unspecified; K58.9 Irritable bowel syndrome, unspecified; T43.592A Poisoning by other antipsychotics and neuroleptics, intentional self-harm, initial encounter; Z79.899 Other long term (current) drug therapy; Z91.51 Personal history of suicidal behavior; Z96.653 Presence of artificial knee joint, bilateral; Z20.822 Contact with and (suspected) exposure to COVID-19
CPT/HCPCS: 36415; 80053; 80061; 80143; 80178; 80179; 80306; 80320; 81025; 83036; 84439; 84443; 84484; 85025; 85610; 87635; 93005; 99285